=== PATIENT | female | born 1975 | race Caucasian/White ===

== ENCOUNTER 2021-07-21 10:08 | Outpatient (REF) | payer SELFPAY ==
[2021-07-21 10:20] LABS: Abs Immature Grans 0.03 10^3/uL (0.0-0.06); Absolute Basophil Count 0.08 10^3/uL (0.0-0.2); Absolute Eosinophil Count 0.15 10^3/uL (0.0-0.7); Absolute Lymphocyte Count 0.88 10^3/uL (1.2-3.4); Eosinophils % 1.8; HCT 41.3 % (36.0-46.0); HGB 12.7 g/dL (11.2-15.7); Immature Grans % 0.4; Lymphocytes % 10.7; MCH 26.3 pg (27.0-33.0); MCHC 30.8 % (32.0-36.0); MCV 85.5 fL (80-95); MPV 9.2 fL (8.0-11.0); Monocytes % 6.1; Nucleated RBC 0 %; Platelet Count 309 10^3/uL (130-400); RBC 4.83 10^6/uL (3.93-5.22); RDW 12.2 % (11.7-14.6); RDW-SD 38.2 fL; WBC 8.24 10^3/uL (4.4-10.8)
[2021-07-21 10:32] LABS: ALT 20 U/L (14-59); AST 9 U/L (15-37); Albumin 3.4 g/dL (3.4-5.0); Alkaline Phosphatase 65 U/L (46-116); Anion Gap 7.2 mmol/L (3-11); BUN 15 mg/dL (7-18); Bilirubin, Total 0.2 mg/dL (0.2-1.0); CO2 26.8 mmol/L (21.0-32.0); CREATININE 0.9 mg/dL (0.55-1.02); Calcium 8.3 mg/dL (8.5-10.1); Chloride 106 mmol/L (98-107); Glucose 82 mg/dL (74-106); Potassium 4.2 mmol/L (3.5-5.1); Sodium 140 mmol/L (136-145); Total Protein 7.2 g/dL (6.4-8.2)
== END 2021-07-21 10:09 | disposition home or self-care (01) ==
LOC: LBN 10:08
PROVIDERS: Visit Provider Internal Medicine Hematology & Oncology
DX: C09.9 Malignant neoplasm of tonsil, unspecified (principal)
CPT/HCPCS: 80053; 83735; 85025

== ENCOUNTER 2021-07-28 11:15 | Outpatient (REF) | payer SELFPAY ==
[2021-07-28 11:19] LABS: Abs Immature Grans 0.04 10^3/uL (0.0-0.06); Absolute Basophil Count 0.06 10^3/uL (0.0-0.2); Absolute Eosinophil Count 0.12 10^3/uL (0.0-0.7); Absolute Lymphocyte Count 0.83 10^3/uL (1.2-3.4); Absolute Monocyte Count 0.71 10^3/uL (0.1-0.8); Absolute Neutrophil Count 6.14 10^3/uL (1.2-6.7); Basophils % 0.8; Eosinophils % 1.5; HCT 39.7 % (36.0-46.0); HGB 12.9 g/dL (11.2-15.7); Immature Grans % 0.5; Lymphocytes % 10.5; MCH 26.8 pg (27.0-33.0); MCHC 32.5 % (32.0-36.0); MCV 82.4 fL (80-95); MPV 9.5 fL (8.0-11.0); Neutrophils % 77.7; Nucleated RBC 0 %; Platelet Count 288 10^3/uL (130-400); RBC 4.82 10^6/uL (3.93-5.22); RDW 11.9 % (11.7-14.6); RDW-SD 35.9 fL
[2021-07-28 11:49] LABS: ALT 47 U/L (14-59); AST 19 U/L (15-37); Albumin 3.8 g/dL (3.4-5.0); Alkaline Phosphatase 57 U/L (46-116); Anion Gap 7.4 mmol/L (3-11); BUN 18 mg/dL (7-18); Bilirubin, Total 0.7 mg/dL (0.2-1.0); CO2 29.6 mmol/L (21.0-32.0); CREATININE 1.1 mg/dL (0.55-1.02); Chloride 98 mmol/L (98-107); Estimated GFR 53.01 (mL/min/1.73m2); Glucose 92 mg/dL (74-106); Potassium 3.7 mmol/L (3.5-5.1); Sodium 135 mmol/L (136-145); Total Protein 7.6 g/dL (6.4-8.2)
[2021-07-28 12:57] LABS: Magnesium 1.8 mg/dL (1.8-2.4)
== END 2021-07-28 11:16 | disposition home or self-care (01) ==
LOC: LBN 11:15
PROVIDERS: Visit Provider Internal Medicine Hematology & Oncology
DX: C09.9 Malignant neoplasm of tonsil, unspecified (principal)
CPT/HCPCS: 80053; 83735; 85025

== ENCOUNTER 2022-05-01 16:33 | Outpatient (REF) | payer MEDICAID, SELFPAY ==
[2022-05-01 11:08] LABS: TSH 2.16 uIU/mL (0.36-3.74)
== END 2022-05-01 16:34 | disposition home or self-care (01) ==
LOC: LBN 16:33
PROVIDERS: PCP Registered Nurse; Visit Provider Internal Medicine Hematology & Oncology
DX: C09.9 Malignant neoplasm of tonsil, unspecified (principal)
CPT/HCPCS: 84443